=== PATIENT | female | born 1990 | race Caucasian/White ===

== ENCOUNTER 2017-08-23 15:02 | Outpatient (CLI) | payer OTHER | END 2017-08-23 17:50 | disposition home or self-care (01) | LOC: OBT 15:02 → L-D 15:02 → OBT 17:50 | DX: O62.9 Abnormality of forces of labor, unspecified (principal); Z3A.37 37 weeks gestation of pregnancy | CPT/HCPCS: 76818 ==

== ENCOUNTER 2017-08-29 02:12 | Inpatient (IN) | payer OTHER ==
[2017-08-29] MEDS: LACTATED RINGER'S 1,000 ML IV ×12 (03:46→23:38)
[2017-08-29 04:16] LABS: ADD UMIC YES; UR ASCORBIC ACID NEGATIVE (NEGATIVE); UR BACTERIA MANY /HPF (NONE SEEN); UR BILIRUBIN (Dip) NEGATIVE (NEGATIVE); UR BLOOD (Dip) NEGATIVE (NEGATIVE); UR CALCIUM OXALATE CRYSTAL MANY /HPF (NONE SEEN); UR CLARITY CLOUDY (CLEAR); UR COLOR AMBER (YELLOW); UR GLUCOSE (Dip) NEGATIVE (NEGATIVE); UR KETONES (Dip) NEGATIVE (NEGATIVE); UR LEUKOCYTE ESTERASE (Dip) 3+ Leu/ul (NEGATIVE); UR MUCUS FEW /HPF (NONE SEEN); UR NITRITE (Dip) POSITIVE (NEGATIVE); UR RBC 5 /HPF (0-5); UR SQUAMOUS EPITHELIAL CELL MODERATE /HPF (FEW); UR TOTAL PROTEIN (Dip) NEGATIVE (NEGATIVE); UR UROBILINOGEN (Dip) 2+ mg/dL (NEGATIVE); UR WBC 95 /HPF (0-5)
[2017-08-29] MEDS ORDERED: METHYLERGONOVINE 0.2 MG INJ IM (05:30)
[2017-08-29] MEDS ORDERED: OXYTOCIN 30 UNITS/LR 500 ML IV (05:30)
[2017-08-29] MEDS ORDERED: CARBOPROST 250 MCG INJ IM (05:30)
[2017-08-29] MEDS ORDERED: MISOPROSTOL 200 MCG TAB PR (05:30)
[2017-08-29] MEDS: BUTORPHANOL 2 MG INJ IV (06:00)
[2017-08-29 06:51] LABS: ADD MAN DIFF? NO
[2017-08-29 06:59] LABS: WHITE BLOOD COUNT 7.8 10^3/ul (4.8-10.8)
[2017-08-29 06:59] LABS: BASOPHILS % 0.5 % (0.0-2.0); EOSINOPHILS # 0.2 10^3/ul (0.0-0.5); EOSINOPHILS % 2.1 % (0.0-7.0); HEMATOCRIT 31.5 % (37.0-47.0); LYMPHOCYTES # 1.8 10^3/ul (0.8-2.9); LYMPHOCYTES % 22.5 % (15.0-51.0); MEAN CORPUSCULAR HEMOGLOBIN 27.1 pg (29.0-33.0); MEAN CORPUSCULAR HGB CONC 31.7 g/dl (32.0-37.0); MEAN CORPUSCULAR VOLUME 85.4 fl (82.0-101.0); MEAN PLATELET VOLUME 12.4 fl (7.4-10.4); MONOCYTE # 0.4 10^3/ul (0.3-0.9); MONOCYTES % 5.5 % (0.0-11.0); NEUTROPHIL # 5.4 10^3/ul (1.6-7.5); NEUTROPHILS % 68.9 % (39.0-77.0); PLATELET COUNT 174 10^3/UL (140-415); RED BLOOD COUNT 3.69 10^6/ul (4.20-5.40); RED CELL DISTRIBUTION WIDTH 13.9 % (11.5-14.5)
[2017-08-29 07:28] LABS: INR 1.02; PARTIAL THROMBOPLASTIN TIME 25.4 Sec (25.0-35.0); PROTIME 13.5 Sec (11.9-14.9); PT RATIO 1.1
[2017-08-29 07:49] LABS: HEPATITIS B SURFACE ANTIGEN NEGATIVE (NEGATIVE)
[2017-08-29] MEDS ORDERED: TERBUTALINE 1 ML (12:41)
[2017-08-29] MEDS: CEFAZOLIN 2 GM/50 ML (PMX) 50 ML IV (12:43)
[2017-08-29] MEDS: CEFAZOLIN 1 GM/50 ML (PMX) 50 ML IVPB ×2 (13:05→21:40)
[2017-08-29] MEDS: TERBUTALINE 1 MG/ML INJ SC (13:06)
[2017-08-29] MEDS ORDERED: CEFAZOLIN 1 GM/50 ML (PMX) 50 ML IVPB (14:00)
[2017-08-29] MEDS ORDERED: MEPERIDINE 50 MG INJ IM (15:30)
[2017-08-29] MEDS: MEPERIDINE 25 MG INJ IV (15:48)
[2017-08-29 16:10] LABS: RAPID PLASMA REAGIN NONREACTIVE (NR)
[2017-08-29] MEDS: ACETAMINOPHEN 325 MG TAB PO (21:30)
[2017-08-29] MEDS: HYDROCODONE/APAP (5/325) TAB PO (23:38)
[2017-08-30] MEDS: MEPERIDINE 25 MG INJ IV (03:22)
[2017-08-30] MEDS: CEFAZOLIN 1 GM/50 ML (PMX) 50 ML IVPB ×3 (06:03→21:45)
[2017-08-30] MEDS: LACTATED RINGER'S 1,000 ML IV ×2 (07:32→15:42)
[2017-08-30] MEDS: ACETAMINOPHEN 325 MG TAB PO (13:42)
[2017-08-30 14:28] LABS: ADD UMIC YES; UR ASCORBIC ACID NEGATIVE (NEGATIVE); UR BACTERIA FEW /HPF (NONE SEEN); UR BILIRUBIN (Dip) NEGATIVE (NEGATIVE); UR BLOOD (Dip) NEGATIVE (NEGATIVE); UR CLARITY CLEAR (CLEAR); UR COLOR YELLOW (YELLOW); UR GLUCOSE (Dip) NEGATIVE (NEGATIVE); UR KETONES (Dip) 2+ mg/dL (NEGATIVE); UR LEUKOCYTE ESTERASE (Dip) TRACE Leu/ul (NEGATIVE); UR NITRITE (Dip) NEGATIVE (NEGATIVE); UR RBC 0 /HPF (0-5); UR SPECIFIC GRAVITY (Dip) 1.012 (1.003-1.030); UR SQUAMOUS EPITHELIAL CELL FEW /HPF (FEW); UR TOTAL PROTEIN (Dip) NEGATIVE (NEGATIVE); UR UROBILINOGEN (Dip) 1+ mg/dL (NEGATIVE); UR WBC 5 /HPF (0-5)
[2017-09-02] MEDS ORDERED: morphine SULFATE/PF (10 MG/10 ML) INJ (20:10)
[2017-09-02] MEDS ORDERED: BUPIVACAINE 0.75%/DEXT (SPINAL) 2 ML INJ (20:10)
== END 2017-08-30 22:50 | disposition home or self-care (01) | DRG 781 ==
LOC: OBT 02:12 → L-D 02:14 → OBT 05:20 → L-D 05:20
DX: O23.03 Infections of kidney in pregnancy, third trimester (principal); Z3A.37 37 weeks gestation of pregnancy
CPT/HCPCS: 36415; 76705; 76815; 76817; 76818; 81001; 85025; 85610; 85730; 86592; 86850; 86900; 86901; 87086; 87340; 96365

== ENCOUNTER 2017-09-01 06:31 | Inpatient (IN) | payer OTHER ==
[2017-09-01] MEDS ORDERED: morphine SULFATE/PF (10 MG/10 ML) INJ (07:00)
[2017-09-01] MEDS ORDERED: EPHEDrine SULFATE 50 MG/5 ML SYG (07:00)
[2017-09-01] MEDS: HYDROCODONE/APAP (5/325) TAB PO (07:43)
[2017-09-01] MEDS ORDERED: CARBOPROST 250 MCG INJ IM ×3 (09:00→18:30)
[2017-09-01] MEDS ORDERED: METHYLERGONOVINE 0.2 MG INJ IM ×3 (09:00→18:30)
[2017-09-01] MEDS ORDERED: MISOPROSTOL 200 MCG TAB PR ×3 (09:00→18:30)
[2017-09-01] MEDS ORDERED: CEFAZOLIN 2 GM/50 ML (PMX) 50 ML IV (09:00)
[2017-09-01] MEDS ORDERED: OXYTOCIN 30 UNITS/LR 500 ML IV ×2 (09:00→18:30)
[2017-09-01] MEDS: LACTATED RINGER'S 1,000 ML IV ×2 (09:41→23:11)
[2017-09-01] MEDS: TERBUTALINE 1 MG/ML INJ SC (09:41)
[2017-09-01 09:49] LABS: ADD MAN DIFF? NO
[2017-09-01 09:52] LABS: BASOPHIL # 0.1 10^3/ul (0.0-0.1); BASOPHILS % 0.6 % (0.0-2.0); EOSINOPHILS # 0.2 10^3/ul (0.0-0.5); EOSINOPHILS % 2.4 % (0.0-7.0); HEMATOCRIT 31.8 % (37.0-47.0); HEMOGLOBIN 10.1 g/dl (12.0-16.0); LYMPHOCYTES # 1.5 10^3/ul (0.8-2.9); LYMPHOCYTES % 18.2 % (15.0-51.0); MEAN CORPUSCULAR HEMOGLOBIN 27.9 pg (29.0-33.0); MEAN CORPUSCULAR HGB CONC 31.8 g/dl (32.0-37.0); MEAN CORPUSCULAR VOLUME 87.8 fl (82.0-101.0); MEAN PLATELET VOLUME 12.2 fl (7.4-10.4); MONOCYTE # 0.5 10^3/ul (0.3-0.9); MONOCYTES % 5.6 % (0.0-11.0); NEUTROPHIL # 5.8 10^3/ul (1.6-7.5); NEUTROPHILS % 72.8 % (39.0-77.0); PLATELET COUNT 183 10^3/UL (140-415); RED BLOOD COUNT 3.62 10^6/ul (4.20-5.40); RED CELL DISTRIBUTION WIDTH 13.8 % (11.5-14.5)
[2017-09-01 10:31] LABS: INR 0.98; PARTIAL THROMBOPLASTIN TIME 24.1 Sec (25.0-35.0); PROTIME 13.1 Sec (11.9-14.9)
[2017-09-01 15:49] LABS: RAPID PLASMA REAGIN NONREACTIVE (NR)
[2017-09-01] MEDS: CEFAZOLIN 3 GM in DEXTROSE 5% 100 ML IV (16:51)
[2017-09-01] MEDS ORDERED: MIDAZOLAM 1 MG/ML 2 ML INJ (17:41)
[2017-09-01] MEDS: OXYTOCIN 30 UNITS/LR 500 ML IV ×2 (18:28→18:36)
[2017-09-01] MEDS: DEXTROSE 5%-LR 1,000 ML IV (18:28)
[2017-09-01] MEDS ORDERED: METHYLERGONOVINE 0.2 MG TAB PO (18:30)
[2017-09-01] MEDS ORDERED: MAGNESIUM HYDROXIDE 30ML CUP PO (18:30)
[2017-09-01] MEDS ORDERED: DIPHENHYDRAMINE 50 MG INJ IV (19:00)
[2017-09-01] MEDS ORDERED: NALBUPHINE HCL (10 MG/1 ML) INJ IV (19:00)
[2017-09-01] MEDS ORDERED: morphine 2 MG INJ IV ×2 (19:00)
[2017-09-01] MEDS ORDERED: ZOLPIDEM 5 MG TAB PO (19:00)
[2017-09-01] MEDS ORDERED: EPHEDrine SULFATE 50 MG/5 ML SYG IV (19:00)
[2017-09-01] MEDS ORDERED: MIDAZOLAM 1 MG/ML 2 ML INJ IV (19:00)
[2017-09-01] MEDS ORDERED: NALOXONE (0.4 MG/ML) INJ IV (19:00)
[2017-09-01] MEDS ORDERED: ONDANSETRON 4 MG INJ IV (19:00)
[2017-09-01] MEDS: ONDANSETRON 4 MG INJ IV (19:00)
[2017-09-01] MEDS ORDERED: MEPERIDINE 25 MG INJ IV (19:00)
[2017-09-01] MEDS ORDERED: ONDANSETRON 4 MG INJ (20:10)
[2017-09-01] MEDS ORDERED: DIPHENHYDRAMINE 50 MG INJ (20:10)
[2017-09-01] MEDS: SENNA/DOCUSATE NA (8.6MG/50MG) TAB PO (21:00)
[2017-09-01] MEDS: CEFAZOLIN 2 GM/50 ML (PMX) 50 ML IV (21:49)
[2017-09-01] MEDS: DIPHENHYDRAMINE 50 MG INJ IV (21:57)
[2017-09-01] MEDS: IBUPROFEN 800 MG TAB PO (22:00)
[2017-09-02] MEDS: CEFAZOLIN 2 GM/50 ML (PMX) 50 ML IV (05:34)
[2017-09-02] MEDS: DEXTROSE 5%-LR 1,000 ML IV ×3 (05:35→18:28)
[2017-09-02] MEDS: IBUPROFEN 800 MG TAB PO ×3 (06:00→21:42)
[2017-09-02 06:54] LABS: ADD MAN DIFF? NO
[2017-09-02 07:03] LABS: WHITE BLOOD COUNT 9.9 10^3/ul (4.8-10.8)
[2017-09-02 07:03] LABS: BASOPHILS % 0.4 % (0.0-2.0); EOSINOPHILS # 0.1 10^3/ul (0.0-0.5); EOSINOPHILS % 0.8 % (0.0-7.0); HEMATOCRIT 30.5 % (37.0-47.0); HEMOGLOBIN 9.4 g/dl (12.0-16.0); LYMPHOCYTES % 9.9 % (15.0-51.0); MEAN CORPUSCULAR HEMOGLOBIN 26.7 pg (29.0-33.0); MEAN CORPUSCULAR HGB CONC 30.8 g/dl (32.0-37.0); MEAN CORPUSCULAR VOLUME 86.6 fl (82.0-101.0); MEAN PLATELET VOLUME 12.2 fl (7.4-10.4); MONOCYTE # 0.5 10^3/ul (0.3-0.9); MONOCYTES % 4.6 % (0.0-11.0); NEUTROPHIL # 8.3 10^3/ul (1.6-7.5); NEUTROPHILS % 83.9 % (39.0-77.0); PLATELET COUNT 157 10^3/UL (140-415); RED BLOOD COUNT 3.52 10^6/ul (4.20-5.40); RED CELL DISTRIBUTION WIDTH 14.1 % (11.5-14.5)
[2017-09-02] MEDS: SENNA/DOCUSATE NA (8.6MG/50MG) TAB PO ×2 (08:48→21:11)
[2017-09-02] MEDS: HYDROCODONE/APAP (5/325) TAB PO ×3 (16:00→22:00)
[2017-09-02] MEDS ORDERED: HYDROCODONE/APAP (5/325) TAB PO (16:00)
[2017-09-02] MEDS: LANOLIN 7 GM TUBE TOP (21:14)
[2017-09-03] MEDS: DEXTROSE 5%-LR 1,000 ML IV ×2 (02:28→18:28)
[2017-09-03] MEDS: IBUPROFEN 800 MG TAB PO ×3 (06:09→22:10)
[2017-09-03] MEDS: HYDROCODONE/APAP (5/325) TAB PO ×3 (06:09→22:11)
[2017-09-03] MEDS: SENNA/DOCUSATE NA (8.6MG/50MG) TAB PO ×2 (09:28→21:29)
[2017-09-04] MEDS: DEXTROSE 5%-LR 1,000 ML IV ×2 (02:28→10:28)
[2017-09-04] MEDS: IBUPROFEN 800 MG TAB PO (06:12)
[2017-09-04] MEDS: HYDROCODONE/APAP (5/325) TAB PO (06:12)
[2017-09-04] MEDS: SENNA/DOCUSATE NA (8.6MG/50MG) TAB PO (09:00)
[2017-09-04] MEDS: MEASLES,MUMPS,RUBELLA VACCINE INJ SC* (09:00)
[2017-09-04] MEDS: DIPHTH/TET/ACEL PERTUSS (ADULT) 0.5 ML VIAL IM* (12:49)
== END 2017-09-04 13:25 | disposition home or self-care (01) | DRG 766 ==
LOC: OBT 06:31 → L-D 06:32 → OBT 08:49 → L-D 08:47 → PP1 20:42
PROVIDERS: Obstetrics & Gynecology
PROC: 10D00Z1 Extraction of Products of Conception, Low, Open Approach (ICD-10-PCS; principal; 2017-09-01 17:00)
PROC: 3E033VJ Introduction of Other Hormone into Peripheral Vein, Percutaneous Approach (ICD-10-PCS; 2017-09-01 17:00)
DX: O34.211 Maternal care for low transverse scar from previous cesarean delivery (principal); O99.62 Diseases of the digestive system complicating childbirth; K66.0 Peritoneal adhesions (postprocedural) (postinfection); Z3A.38 38 weeks gestation of pregnancy; Z37.0 Single live birth
CPT/HCPCS: 76815; 85025; 85610; 85730; 86592; 86850; 86900; 86901; 99464